=== PATIENT | male | born 1960 | race Caucasian/White ===

== ENCOUNTER 2016-09-11 07:21 | Day surgery (SDC) | payer BC | END 2016-09-11 11:00 | disposition short-term general hospital (02) | LOC: SURGOP 07:21 | PROC: 0YU60JZ Supplement Left Inguinal Region with Synthetic Substitute, Open Approach (ICD-10-PCS; principal; 2016-09-11) | DX: K40.90 Unilateral inguinal hernia, without obstruction or gangrene, not specified as recurrent (principal); N40.0 Benign prostatic hyperplasia without lower urinary tract symptoms; N52.9 Male erectile dysfunction, unspecified; F17.210 Nicotine dependence, cigarettes, uncomplicated; Z79.899 Other long term (current) drug therapy; Z88.6 Allergy status to analgesic agent; Z80.0 Family history of malignant neoplasm of digestive organs | CPT/HCPCS: C1781; J0690; J2250; J3010 ==

== ENCOUNTER → 2016-09-18 | Outpatient (CLI) | payer BC | END | disposition short-term general hospital (02) | LOC: CLSURG 07:59 | DX: K40.90 Unilateral inguinal hernia, without obstruction or gangrene, not specified as recurrent (principal) ==